=== PATIENT | female | born 1990 ===

== ENCOUNTER 2017-02-07 00:10 | Inpatient (IN) | payer MEDICAID, OTHER ==
--- NOTE | 2017-02-07 00:32 | C.PDOC ---
History Of Present Illness Patient presents to the ER for a complaint of a possible seizure that occurred [employer]. Patient states she was talking to her mother when her eyes rolled into her head, she passed out, and hit her head on the table. After a few seconds patient regain consciousness, heard her mother ask her how she was, and syncopized again with no recollection of the incident. Patient reports she began her menstruation cycle today. Patient does not appear post ictal at this time; denies nausea or vomiting. Time Seen by Provider: 02/07/17 00:31 Chief Complaint (Nursing): Seizure History Per: Patient, Family History/Exam Limitations: no limitations Recent Seizure Activity Began: Just Before Arrival Number Of Seizures: Multiple Length Of Seizures (Duration): Seconds Precipitating Factor(s): None Post-ictal Period: No Severity: None Recent travel outside of the [place]: No Additional History Per: Family Past Medical History Reviewed: Historical Data, Nursing Documentation, Vital Signs Vital Signs: Last Vital Signs Temp 97.8 F 02/07/17 00:12 Pulse 72 02/07/17 01:48 Resp 15 02/07/17 01:48 BP 120/77 02/07/17 01:48 Pulse Ox 98 02/07/17 01:48 - Medical History PMH: No Chronic Diseases Surgical History: No Surg Hx Family History: States: Unknown Family Hx - Social History Hx Alcohol Use: No Hx Substance Use: No - Immunization History Hx Tetanus Toxoid Vaccination: No Hx Influenza Vaccination: No Hx Pneumococcal Vaccination: No Review Of Systems Constitutional: Negative for: Fever, Chills Cardiovascular: Negative for: Chest Pain Respiratory: Negative for: Shortness of Breath Gastrointestinal: Negative for: Nausea, Vomiting Genitourinary: Negative for: Dysuria Musculoskeletal: Negative for: Back Pain Skin: Negative for: Rash, Lesions, Jaundice, Bruising Neurological: Positive for: Other (Syncopal episode). Negative for: Weakness, Seizures Psych: Negative for: Anxiety Physical Exam - Physical Exam Appears: Non-toxic Skin: Warm, Dry Head: Normacephalic Eye(s): bilateral: Normal Inspection (No nystagmus), PERRL, EOMI Oral Mucosa: Moist Neck: Trachea Midline, No Midline Cervical Tenderness, No Paracervical Tenderness, Supple Chest: Symmetrical Cardiovascular: Rhythm Regular Respiratory: No Rales, No Rhonchi, No Wheezing Gastrointestinal/Abdominal: Soft, No Tenderness Extremity: Normal ROM, No Tenderness Extremity: Bilateral: Atraumatic, Normal Color And Temperature, Normal ROM Pulses: Left Dorsalis Pedis: Normal, Right Dorsalis Pedis: Normal Neurological/Psych: Oriented x3, Normal Speech, Normal Cognition, Normal Cranial Nerves, Normal Motor, Normal Sensation Gait: Steady ED Course And Treatment - Laboratory Results Result Diagrams: 02/07/17 00:50 02/07/17 00:50 ECG: Interpreted By Me, Viewed By Me ECG Rhythm: Sinus Rhythm (59), R BBB, Nonspecific Changes O2 Sat by Pulse Oximetry: 100 Pulse Ox Interpretation: Normal Progress Note: EKG, blood work, and urinalysis ordered. IV fluids administered. Disposition Discussed With Dr.: Desiree Meredith Comment: accepted the pt on his service and took over the care at 4:28 AM Doctor Will See Patient In The: Hospital Counseled Patient/Family Regarding: Studies Performed, Diagnosis - Disposition Disposition: HOSPITALIZED Disposition Time: 00:31 Condition: FAIR Forms: [facility] (Amharic) - POA Present On Arrival: None - Clinical Impression Clinical Impression: Syncope - Scribe Statement The provider has reviewed the documentation as recorded by the Scribe David Sharma All medical record entries made by the Scribe were at my direction and personally dictated by me. I have reviewed the chart and agree that the record accurately reflects my personal performance of the history, physical exam, medical decision making, and the department course for this patient. I have also personally directed, reviewed, and agree with the discharge instructions and disposition. Decision To Admit - Pt Status Changed To: Hospital Disposition Of: Inpatient - Admit Certification Admit to Inpatient:: After my assessment, the patient will require hospitalization for at least two midnights. This is because of the severity of symptoms shown, intensity of services needed, and/or the medical risk in this patient being treated as an outpatient. - InPatient: Physician Admission Certification: I certify that this patient requires 2 or more midnights of care for the following reason:: After my assessment, the patient will require hospitalization for at least two midnights. This is because of the severity of symptoms shown, intensity of services needed, and/or the medical risk in this patient being treated as an outpatient. - . Bed Request Type: Telemetry Admitting Physician: Desiree Meredith Patient Diagnosis: Syncope
[2017-02-07] MEDS ORDERED: Sodium Chloride 0.9% 1,000 ML IV ONE ×2 (00:38→01:43)
[2017-02-07 00:53] LABS: BASO # 0.1 K/uL (0.0-0.2); BASO % 0.7 % (0.0-2.0); EOS # 0.1 K/uL (0.0-0.7); EOS % 0.7 % (0.0-4.0); HEMATOCRIT 37.9 % (34.0-47.0); LYMPH # 3.5 K/uL (1.0-4.3); LYMPH % 43.3 % (20.0-40.0); MEAN CORPUSCULAR HEMOGLOBIN 28.8 pg (27.0-31.0); MEAN CORPUSCULAR HGB CONC 33.5 g/dL (33.0-37.0); MEAN PLATELET VOLUME 10.6 fL (7.2-11.7); MONO # 0.5 K/uL (0.0-0.8); MONO % 6.5 % (0.0-10.0); NRBC % 0.1 % (0.0-2.0); WHITE BLOOD COUNT 8.1 K/uL (4.8-10.8)
[2017-02-07 01:00] LABS: CHLORIDE 100 mmol/L (98-107)
[2017-02-07 01:01] LABS: POTASSIUM 3.6 mmol/L (3.6-5.2); SODIUM 136 mmol/L (132-148)
[2017-02-07 01:05] LABS: ALB/GLOB RATIO 1.7 (1.0-2.1); ALKALINE PHOSPHATASE 37 U/L (38-126); ALT/SGPT 38 U/L (9-52); AST/SGOT 17 U/L (14-36); BILIRUBIN,TOTAL 0.3 mg/dL (0.2-1.3); BLOOD UREA NITROGEN 24 mg/dL (7-17); CALCIUM 8.2 mg/dl (8.6-10.4); CARBON DIOXIDE 22 mmol/L (22-30); GFR AFRICAN-AMERICAN > 60; GLUCOSE,RANDOM 140 mg/dL (65-105); TOTAL PROTEIN 6.6 g/dL (6.3-8.3)
[2017-02-07 02:29] LABS: URINE BILIRUBIN NEGATIVE (NEGATIVE); URINE COLOR Straw (YELLOW); URINE GLUCOSE (UA) NORMAL (Normal); URINE KETONE NEGATIVE (NEGATIVE); URINE LEUKOCYTE ESTERASE NEG Leu/uL (Negative); URINE PROTEIN NEGATIVE (NEGATIVE); URINE UROBILINOGEN NORMAL mg/dL (0.2-1.0); WBC URINE 2 /hpf (0-5)
[2017-02-07 02:39] LABS: URINE BLOOD NEGATIVE (NEGATIVE)
--- NOTE | 2017-02-07 04:03 | CT ---
EXAM: CT Head Without Intravenous Contrast CLINICAL HISTORY: 26 years old, female; Signs and symptoms; Syncope and collapse TECHNIQUE: Axial computed tomography images of the head/brain without intravenous contrast. All CT scans at this facility use one or more dose reduction techniques, viz.: automated exposure control; ma/kV adjustment per patient size (including targeted exams where dose is matched to indication; i.e. head); or iterative reconstruction technique. Coronal and sagittal reformatted images were created and reviewed. COMPARISON: No relevant prior studies available. FINDINGS: Brain: No intracranial hemorrhage. No mass. No definite edema. Ventricles: No hydrocephalus. Bones/joints: No acute fracture. Soft tissues: Unremarkable. Sinuses: No acute sinusitis. Mastoid air cells: No mastoid effusion. Orbits: Unremarkable as visualized. IMPRESSION: 1. No acute intracranial abnormality.
[2017-02-07] MEDS ORDERED: levETIRAcetam 1,000 MG in Sodium Chloride 0.9% 100 ML IVPB SCH (07:30)
[2017-02-07] MEDS ORDERED: levETIRAcetam 1,000 MG in Sodium Chloride 0.9% 100 ML IVPB STA (07:32)
[2017-02-07 08:50] LABS: MAGNESIUM 1.8 mg/dL (1.6-2.3); PHOSPHOROUS 3.3 mg/dL (2.5-4.5)
[2017-02-07 09:17] LABS: FREE T4 0.87 ng/dL (0.78-2.19)
[2017-02-07 09:31] LABS: THYROID STIMULATING HORMONE 1.91 mIU/L (0.46-4.68)
[2017-02-07] MEDS ORDERED: Gadodiamide 287 MG/ML VIAL (15ML) IV ONE (10:32)
--- NOTE | 2017-02-07 11:35 | MRI ---
PROCEDURE: MRI BRAIN WITH AND WITHOUT CONTRAST HISTORY: seizures r/o mass COMPARISON: Noncontrast head CT from 02/07/2017. TECHNIQUE: Multiplanar, multisequence MR images of the brain were obtained with and without intravenous contrast enhancement. 10 mL Omniscan was injected intravenously. FINDINGS: HEMORRHAGE: None DWI: No evidence of an acute or early subacute infarction. BRAIN PARENCHYMA: There is a linear T1 hypointense and T2/FLAIR hyperintense area in the right periatrial white matter extending to the cortex with corresponding enhancement. Razo-white matter differentiation is preserved. There is no mass, mass effect or abnormal extra-axial fluid collection. There is no territorial infarction. ENHANCEMENT: No abnormal leptomeningeal enhancement. VENTRICLES: The ventricles are normal in size, shape and configuration. CRANIUM: There is normal bone marrow signal pattern. ORBITS: Grossly unremarkable. PARANASAL SINUSES/MASTOIDS: Predominantly clear. VASCULAR SYSTEM: There are normal signal voids in the larger intracranial arteries. OTHER FINDINGS: None . IMPRESSION: No acute intracranial abnormality. 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 No evidence of intracranial mass, hydrocephalus or acute infarction.
--- NOTE | 2017-02-07 14:57 | CP.PCM.CON ---
<Ravinder Mccracken - Last Filed: 02/07/17 17:40> History of Present Illness - History of Present Illness History of Present Illness: Cardiology Consult Note- Dr. Rodriguez's service Patient seen and examined at approx 15:15PM in ED bed 9. Mother was accompanied bedside. CC: seizure-type event HPI: 26 year old female with no past medical history presents with complaints of syncopal event. She had two witnessed events which have never occurred before. She states that she was having a discussion with mother and friend when she suddenly dropped her head unto the table and shook. Patient states that she became alert and continued the conversation when she then fell to the table again, but this time, also fell on to the ground shaking for 20-30 seconds. She states that she remembers the conversation she was having with her mother just prior to the seizure. She states that when she woke up, she found herself in the living room with paramedics all around. She could not remember how she got to the living room. She states that her mother took her blood pressure with a home cuff and her BP was found to be a low systolic pressure in the 70s. She states that the paramedics commented on how pale she appeared as well. Of note, patient reports starting her menstrual period yesterday. She admits to feeling lightheaded just before her periods started. She also reports beginning a new gym regiment two week sprior for which she started taking a new supplement garcinia cambogia a week prior. She denies subjective fevers or chills, headaches, chest pain, palpitations, dyspnea, nausea, vomiting, diarrhea , dysuria at this time. FDLMP: February 06, 2017, Regular, lasting 4 day duration; admits to using 6 pads per day PMHX: No known history PSHx: Breast implants 3 years ago ( no known complications ) Fam Hx: Mom- HTN; Paternal grandmother has colon cancer which was diagnosed at approx 66 years of age Meds: newly started taking garcinia cambogia a week prior; apple cider vinegar tablets, green tea extract tablets Social: She denies smoking, She admits to social alcohol use on social occasions ; she denies illicit drug use; She denies caffeine or coffee; She lives with brother Allergies: NKDA Review of Systems - Review of Systems Systems not reviewed;Unavailable: Altered Mental Status, Language Barrier - Constitutional Constitutional: absent: Headache - EENT Eyes: absent: Blurred Vision, Change in Vision - Cardiovascular Cardiovascular: absent: Chest Pain - Respiratory Respiratory: absent: Dyspnea - Gastrointestinal Gastrointestinal: absent: Nausea, Vomiting - Reproductive: Female Reproductive:Female: Currently Menstual, Normal Menses - Menstruation Menstruation: Currently Menstual, Normal Menses - Musculoskeletal Musculoskeletal: absent: Back Pain - Integumentary Integumentary: absent: Dry Skin - Neurological Neurological: Confusion. absent: Abnormal Hearing, Abnormal Movements, Numbness , Focal Weakness - Psychiatric Psychiatric: Confusion - Hematologic/Lymphatic Hematologic: absent: Easy Bleeding, Easy Bruising Past Patient History - Infectious Disease Hx of Infectious Diseases: None - Past Social History Smoking Status: Never Smoked - PSYCHIATRIC Hx Substance Use: No - SURGICAL HISTORY Hx Surgeries: Yes Other/Comment: Breast implant - ANESTHESIA Hx Anesthesia: Yes Hx Anesthesia Reactions: No Meds Allergies/Adverse Reactions: Allergies Allergy/AdvReac Type Severity Reaction Status Date / Time No Known Allergies Allergy Verified 02/07/17 00:19 - Medications Medications: Current Medications Levetiracetam (Keppra) 500 mg PO BID DEREJE Physical Exam - Constitutional Appears: Non-toxic, No Acute Distress - Head Exam Head Exam: ATRAUMATIC, NORMAL INSPECTION, NORMOCEPHALIC - Eye Exam Eye Exam: EOMI, Normal appearance, PERRL Pupil Exam: NORMAL ACCOMODATION, PERRL - ENT Exam ENT Exam: Mucous Membranes Moist - Neck Exam Neck exam: Positive for: Full Rom - Respiratory Exam Respiratory Exam: NORMAL BREATHING PATTERN. absent: Wheezes - Cardiovascular Exam Cardiovascular Exam: +S1, +S2. absent: Systolic Murmur - GI/Abdominal Exam GI & Abdominal Exam: Normal Bowel Sounds, Soft - Extremities Exam Extremities exam: Positive for: full ROM - Back Exam Back exam: FULL ROM, NORMAL INSPECTION - Neurological Exam Neurological exam: Alert, Oriented x3 - Psychiatric Exam Psychiatric exam: Normal Affect, Normal Mood - Skin Skin Exam: Dry, Normal Color, Warm Results - Vital Signs Recent Vital Signs: Last Vital Signs Temp 98.4 F 02/07/17 12:30 Pulse 88 02/07/17 12:30 Resp 18 02/07/17 12:30 BP 114/82 02/07/17 12:30 Pulse Ox 98 02/07/17 12:30 - Labs Result Diagrams: 02/07/17 00:50 02/07/17 00:50 Labs: Laboratory Results - last 24 hr 02/07/17 02/07/17 02/07/17 00:50 00:50 00:50 WBC 8.1 RBC 4.41 Hgb 12.7 Hct 37.9 MCV 86.0 MCH 28.8 MCHC 33.5 RDW 13.0 Plt Count 208 MPV 10.6 Neut % (Auto) 48.8 L Lymph % (Auto) 43.3 H Barber % (Auto) 6.5 Eos % (Auto) 0.7 Baso % (Auto) 0.7 Neut # 4.0 Lymph # 3.5 Barber # 0.5 Eos # 0.1 Baso # 0.1 ESR PT 11.7 INR 1.0 APTT 29 Sodium 136 Potassium 3.6 Chloride 100 Carbon Dioxide 22 Anion Gap 18 BUN 24 H Creatinine 0.8 Est GFR ( Amer) > 60 Est GFR (Non-Af Amer) > 60 Random Glucose 140 H Calcium 8.2 L Phosphorus Magnesium Total Bilirubin 0.3 AST 17 ALT 38 Alkaline Phosphatase 37 L Total Creatine Kinase 158 H C-React Prot High Sens Total Protein 6.6 Albumin 4.2 Globulin 2.5 Albumin/Globulin Ratio 1.7 Lipase 135 Free T4 TSH 3rd Generation Prolactin Urine Color Urine Clarity Urine pH Ur Specific Nathalie Urine Protein Urine Glucose (UA) Urine Ketones Urine Blood Urine Nitrate Urine Bilirubin Urine Urobilinogen Ur Leukocyte Esterase Urine WBC (Auto) Ur Squamous Epith Cells Urine HCG, Qual Urine Opiates Screen Urine Methadone Screen Ur Barbiturates Screen Ur Phencyclidine Scrn Ur Amphetamines Screen U Benzodiazepines Scrn U Oth Cocaine Metabols U Cannabinoids Screen Blood Type Antibody Screen 02/07/17 02/07/17 02/07/17 00:50 02:26 04:28 WBC RBC Hgb Hct MCV MCH MCHC RDW Plt Count MPV Neut % (Auto) Lymph % (Auto) Barber % (Auto) Eos % (Auto) Baso % (Auto) Neut # Lymph # Barber # Eos # Baso # ESR PT INR APTT Sodium Potassium Chloride Carbon Dioxide Anion Gap BUN Creatinine Est GFR ( Amer) Est GFR (Non-Af Amer) Random Glucose Calcium Phosphorus Magnesium Total Bilirubin AST ALT Alkaline Phosphatase Total Creatine Kinase C-React Prot High Sens Total Protein Albumin Globulin Albumin/Globulin Ratio Lipase Free T4 TSH 3rd Generation Prolactin Urine Color Straw Urine Clarity Clear Urine pH 6.0 Ur Specific Nathalie 1.006 Urine Protein Negative Urine Glucose (UA) Normal Urine Ketones Negative Urine Blood Negative Urine Nitrate Negative Urine Bilirubin Negative Urine Urobilinogen Normal Ur Leukocyte Esterase Neg Urine WBC (Auto) 2 Ur Squamous Epith Cells 1 Urine HCG, Qual Negative Urine Opiates Screen Negative Urine Methadone Screen Negative Ur Barbiturates Screen Negative Ur Phencyclidine Scrn Negative Ur Amphetamines Screen Negative U Benzodiazepines Scrn Negative U Oth Cocaine Metabols Negative U Cannabinoids Screen Negative Blood Type A POSITIVE Antibody Screen Negative 02/07/17 02/07/17 02/07/17 08:28 08:28 08:40 WBC RBC Hgb Hct MCV MCH MCHC RDW Plt Count MPV Neut % (Auto) Lymph % (Auto) Barber % (Auto) Eos % (Auto) Baso % (Auto) Neut # Lymph # Barber # Eos # Baso # ESR 2 PT INR APTT Sodium Potassium Chloride Carbon Dioxide Anion Gap BUN Creatinine Est GFR ( Amer) Est GFR (Non-Af Amer) Random Glucose Calcium Phosphorus 3.3 Magnesium 1.8 Total Bilirubin AST ALT Alkaline Phosphatase Total Creatine Kinase C-React Prot High Sens 0.14 L Total Protein Albumin Globulin Albumin/Globulin Ratio Lipase Free T4 0.87 TSH 3rd Generation 1.91 Prolactin 14.8 Urine Color Urine Clarity Urine pH Ur Specific Nathalie Urine Protein Urine Glucose (UA) Urine Ketones Urine Blood Urine Nitrate Urine Bilirubin Urine Urobilinogen Ur Leukocyte Esterase Urine WBC (Auto) Ur Squamous Epith Cells Urine HCG, Qual Urine Opiates Screen Urine Methadone Screen Ur Barbiturates Screen Ur Phencyclidine Scrn Ur Amphetamines Screen U Benzodiazepines Scrn U Oth Cocaine Metabols U Cannabinoids Screen Blood Type Antibody Screen Assessment & Plan (1) Syncope Assessment and Plan: Syncopal vs Seizure event Appears Neurologic in nature and less likely cardiogenic Patient advised to discontinue garcinia cambogia supplement at this time. 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 All orders and management per Dr. Rodriguez. <Wilber Rodriguez - Last Filed: 02/07/17 22:38> Meds - Medications Medications: Current Medications Levetiracetam (Keppra) 500 mg PO BID DEREJE Last Admin: 02/07/17 18:01 Dose: 500 mg Results - Vital Signs Recent Vital Signs: Last Vital Signs Temp 97.9 F 02/07/17 17:36 Pulse 68 02/07/17 18:00 Resp 20 02/07/17 17:36 BP 128/79 02/07/17 17:36 Pulse Ox 100 02/07/17 17:36 - Labs Result Diagrams: 02/07/17 00:50 02/07/17 00:50 Labs: Laboratory Results - last 24 hr 02/07/17 02/07/17 02/07/17 00:50 00:50 00:50 WBC 8.1 RBC 4.41 Hgb 12.7 Hct 37.9 MCV 86.0 MCH 28.8 MCHC 33.5 RDW 13.0 Plt Count 208 MPV 10.6 Neut % (Auto) 48.8 L Lymph % (Auto) 43.3 H Barber % (Auto) 6.5 Eos % (Auto) 0.7 Baso % (Auto) 0.7 Neut # 4.0 Lymph # 3.5 Barber # 0.5 Eos # 0.1 Baso # 0.1 ESR PT 11.7 INR 1.0 APTT 29 Sodium 136 Potassium 3.6 Chloride 100 Carbon Dioxide 22 Anion Gap 18 BUN 24 H Creatinine 0.8 Est GFR ( Amer) > 60 Est GFR (Non-Af Amer) > 60 Random Glucose 140 H Calcium 8.2 L Phosphorus Magnesium Total Bilirubin 0.3 AST 17 ALT 38 Alkaline Phosphatase 37 L Total Creatine Kinase 158 H C-React Prot High Sens Total Protein 6.6 Albumin 4.2 Globulin 2.5 Albumin/Globulin Ratio 1.7 Lipase 135 Free T4 TSH 3rd Generation Prolactin Urine Color Urine Clarity Urine pH Ur Specific Nathalie Urine Protein Urine Glucose (UA) Urine Ketones Urine Blood Urine Nitrate Urine Bilirubin Urine Urobilinogen Ur Leukocyte Esterase Urine WBC (Auto) Ur Squamous Epith Cells Urine HCG, Qual Urine Opiates Screen Urine Methadone Screen Ur Barbiturates Screen Ur Phencyclidine Scrn Ur Amphetamines Screen U Benzodiazepines Scrn U Oth Cocaine Metabols U Cannabinoids Screen Blood Type Antibody Screen 02/07/17 02/07/17 02/07/17 00:50 02:26 04:28 WBC RBC Hgb Hct MCV MCH MCHC RDW Plt Count MPV Neut % (Auto) Lymph % (Auto) Barber % (Auto) Eos % (Auto) Baso % (Auto) Neut # Lymph # Barber # Eos # Baso # ESR PT INR APTT Sodium Potassium Chloride Carbon Dioxide Anion Gap BUN Creatinine Est GFR ( Amer) Est GFR (Non-Af Amer) Random Glucose Calcium Phosphorus Magnesium Total Bilirubin AST ALT Alkaline Phosphatase Total Creatine Kinase C-React Prot High Sens Total Protein Albumin Globulin Albumin/Globulin Ratio Lipase Free T4 TSH 3rd Generation Prolactin Urine Color Straw Urine Clarity Clear Urine pH 6.0 Ur Specific Nathalie 1.006 Urine Protein Negative Urine Glucose (UA) Normal Urine Ketones Negative Urine Blood Negative Urine Nitrate Negative Urine Bilirubin Negative Urine Urobilinogen Normal Ur Leukocyte Esterase Neg Urine WBC (Auto) 2 Ur Squamous Epith Cells 1 Urine HCG, Qual Negative Urine Opiates Screen Negative Urine Methadone Screen Negative Ur Barbiturates Screen Negative Ur Phencyclidine Scrn Negative Ur Amphetamines Screen Negative U Benzodiazepines Scrn Negative U Oth Cocaine Metabols Negative U Cannabinoids Screen Negative Blood Type A POSITIVE Antibody Screen Negative 02/07/17 02/07/17 02/07/17 08:28 08:28 08:40 WBC RBC Hgb Hct MCV MCH MCHC RDW Plt Count MPV Neut % (Auto) Lymph % (Auto) Barber % (Auto) Eos % (Auto) Baso % (Auto) Neut # Lymph # Barber # Eos # Baso # ESR 2 PT INR APTT Sodium Potassium Chloride Carbon Dioxide Anion Gap BUN Creatinine Est GFR ( Amer) Est GFR (Non-Af Amer) Random Glucose Calcium Phosphorus 3.3 Magnesium 1.8 Total Bilirubin AST ALT Alkaline Phosphatase Total Creatine Kinase C-React Prot High Sens 0.14 L Total Protein Albumin Globulin Albumin/Globulin Ratio Lipase Free T4 0.87 TSH 3rd Generation 1.91 Prolactin 14.8 Urine Color Urine Clarity Urine pH Ur Specific Nathalie Urine Protein Urine Glucose (UA) Urine Ketones Urine Blood Urine Nitrate Urine Bilirubin Urine Urobilinogen Ur Leukocyte Esterase Urine WBC (Auto) Ur Squamous Epith Cells Urine HCG, Qual Urine Opiates Screen Urine Methadone Screen Ur Barbiturates Screen Ur Phencyclidine Scrn Ur Amphetamines Screen U Benzodiazepines Scrn U Oth Cocaine Metabols U Cannabinoids Screen Blood Type Antibody Screen Assessment & Plan - Assessment and Plan (Free Text) Assessment: Patient seen and evaluated with the medical sonographer Plan of care as documented
[2017-02-07 17:37] VITALS: RESP 20
--- NOTE | 2017-02-07 19:29 | CP.PCM.HP ---
History of Present Illness - History of Present Illness History of Present Illness: 26 y/o F with no P/M/H presents with C/O?syncopal/seizure. The patient describes 2 distinct events which never occurred before. She was in a discussion with her mother when she suddenly felt lightheaded, fell down & hit her head. She got up immediately and continued the conversation. After a while , she again fell on the ground hitting her head and this time was shaking her extremities which lasted for about 25-30 seconds. She lost consciousness after this episode. The next thing which she remembers was she was in her living room with her mother on her side, and EMS personal around her. Her mother reports her blood pressure to be 70 systolic during this time. Her mother and EMS also reported her to be pale when they saw her. Past Patient History - Infectious Disease Hx of Infectious Diseases: None - Past Medical History & Family History Past Medical History?: Yes - Past Social History Smoking Status: Never Smoked - MUSCULOSKELETAL/RHEUMATOLOGICAL Hx Falls: No - PSYCHIATRIC Hx Substance Use: No - SURGICAL HISTORY Hx Surgeries: Yes Other/Comment: Breast implant - ANESTHESIA Hx Anesthesia: Yes Hx Anesthesia Reactions: No Meds Home Medications: Home Medication List Medication Instructions Recorded Confirmed Type levETIRAcetam [Keppra] 500 mg PO BID #60 tab 02/10/17 Rx Allergies/Adverse Reactions: Allergies Allergy/AdvReac Type Severity Reaction Status Date / Time No Known Allergies Allergy Verified 02/07/17 00:19 Physical Exam - Constitutional Appears: Well - Head Exam Head Exam: ATRAUMATIC, NORMAL INSPECTION, NORMOCEPHALIC - Eye Exam Eye Exam: EOMI, Normal appearance, PERRL Pupil Exam: NORMAL ACCOMODATION, PERRL - ENT Exam ENT Exam: Mucous Membranes Moist, Normal Exam - Neck Exam Neck exam: Positive for: Normal Inspection - Respiratory Exam Respiratory Exam: Decreased Breath Sounds - Cardiovascular Exam Cardiovascular Exam: REGULAR RHYTHM, +S1, +S2 - GI/Abdominal Exam GI & Abdominal Exam: Diminished Bowel Sounds, Soft - Rectal Exam Rectal Exam: Deferred Results - Vital Signs Recent Vital Signs: Last Vital Signs Temp 97.9 F 02/07/17 17:36 Pulse 58 L 02/07/17 17:36 Resp 20 02/07/17 17:36 BP 128/79 02/07/17 17:36 Pulse Ox 100 02/07/17 17:36 - Labs Result Diagrams: 02/10/17 13:56 02/10/17 13:15 Labs: Laboratory Results - last 24 hr 02/07/17 02/07/17 02/07/17 00:50 00:50 00:50 WBC 8.1 RBC 4.41 Hgb 12.7 Hct 37.9 MCV 86.0 MCH 28.8 MCHC 33.5 RDW 13.0 Plt Count 208 MPV 10.6 Neut % (Auto) 48.8 L Lymph % (Auto) 43.3 H [place] % (Auto) 6.5 Eos % (Auto) 0.7 Baso % (Auto) 0.7 Neut # 4.0 Lymph # 3.5 [place] # 0.5 Eos # 0.1 Baso # 0.1 ESR PT 11.7 INR 1.0 APTT 29 Sodium 136 Potassium 3.6 Chloride 100 Carbon Dioxide 22 Anion Gap 18 BUN 24 H Creatinine 0.8 Est GFR ( Amer) > 60 Est GFR (Non-Af Amer) > 60 Random Glucose 140 H Calcium 8.2 L Phosphorus Magnesium Total Bilirubin 0.3 AST 17 ALT 38 Alkaline Phosphatase 37 L Total Creatine Kinase 158 H C-React Prot High Sens Total Protein 6.6 Albumin 4.2 Globulin 2.5 Albumin/Globulin Ratio 1.7 Lipase 135 Free T4 TSH 3rd Generation Prolactin Urine Color Urine Clarity Urine pH Ur Specific [place] Urine Protein Urine Glucose (UA) Urine Ketones Urine Blood Urine Nitrate Urine Bilirubin Urine Urobilinogen Ur Leukocyte Esterase Urine WBC (Auto) Ur Squamous Epith Cells Urine HCG, Qual Urine Opiates Screen Urine Methadone Screen Ur Barbiturates Screen Ur Phencyclidine Scrn Ur Amphetamines Screen U Benzodiazepines Scrn U Oth Cocaine Metabols U Cannabinoids Screen Blood Type Antibody Screen 02/07/17 02/07/17 02/07/17 00:50 02:26 04:28 WBC RBC Hgb Hct MCV MCH MCHC RDW Plt Count MPV Neut % (Auto) Lymph % (Auto) [place] % (Auto) Eos % (Auto) Baso % (Auto) Neut # Lymph # [place] # Eos # Baso # ESR PT INR APTT Sodium Potassium Chloride Carbon Dioxide Anion Gap BUN Creatinine Est GFR ( Amer) Est GFR (Non-Af Amer) Random Glucose Calcium Phosphorus Magnesium Total Bilirubin AST ALT Alkaline Phosphatase Total Creatine Kinase C-React Prot High Sens Total Protein Albumin Globulin Albumin/Globulin Ratio Lipase Free T4 TSH 3rd Generation Prolactin Urine Color Straw Urine Clarity Clear Urine pH 6.0 Ur Specific [place] 1.006 Urine Protein Negative Urine Glucose (UA) Normal Urine Ketones Negative Urine Blood Negative Urine Nitrate Negative Urine Bilirubin Negative Urine Urobilinogen Normal Ur Leukocyte Esterase Neg Urine WBC (Auto) 2 Ur Squamous Epith Cells 1 Urine HCG, Qual Negative Urine Opiates Screen Negative Urine Methadone Screen Negative Ur Barbiturates Screen Negative Ur Phencyclidine Scrn Negative Ur Amphetamines Screen Negative U Benzodiazepines Scrn Negative U Oth Cocaine Metabols Negative U Cannabinoids Screen Negative Blood Type A POSITIVE Antibody Screen Negative 02/07/17 02/07/17 02/07/17 08:28 08:28 08:40 WBC RBC Hgb Hct MCV MCH MCHC RDW Plt Count MPV Neut % (Auto) Lymph % (Auto) [place] % (Auto) Eos % (Auto) Baso % (Auto) Neut # Lymph # [place] # Eos # Baso # ESR 2 PT INR APTT Sodium Potassium Chloride Carbon Dioxide Anion Gap BUN Creatinine Est GFR ( Amer) Est GFR (Non-Af Amer) Random Glucose Calcium Phosphorus 3.3 Magnesium 1.8 Total Bilirubin AST ALT Alkaline Phosphatase Total Creatine Kinase C-React Prot High Sens 0.14 L Total Protein Albumin Globulin Albumin/Globulin Ratio Lipase Free T4 0.87 TSH 3rd Generation 1.91 Prolactin 14.8 Urine Color Urine Clarity Urine pH Ur Specific [place] Urine Protein Urine Glucose (UA) Urine Ketones Urine Blood Urine Nitrate Urine Bilirubin Urine Urobilinogen Ur Leukocyte Esterase Urine WBC (Auto) Ur Squamous Epith Cells Urine HCG, Qual Urine Opiates Screen Urine Methadone Screen Ur Barbiturates Screen Ur Phencyclidine Scrn Ur Amphetamines Screen U Benzodiazepines Scrn U Oth Cocaine Metabols U Cannabinoids Screen Blood Type Antibody Screen
--- NOTE | 2017-02-08 06:27 | CON ---
NEUROLOGY CONSULTATION DATE: ATTENDING PHYSICIAN: Jovana Meredith MD LOCATION: The patient is in emergency room, bed 9. REASON FOR CONSULTATION: New onset of seizure. CHIEF COMPLAINT: The patient was brought into [facility] by EMS with a history of witnessed seizure at home. From a neurological point, I was called in to evaluate her for further management. HISTORY OF PRESENT ILLNESS: Ms. Soila Aj is a 26-year-old right-handed Chilean speaking Ukrainian female, who is studying Chilean, brought into [facility] emergency room with a history of witnessed seizures. This was described by her mother with translation. After 7 o'clock at dinner, she was sitting at the table suddenly her head fell on the table and she had shaking episode. Mother immediately tried to grab her to ask her what is happening. She said "yes" some response from her, otherwise she is not following any commands. The whole episode lasted for about few seconds. She grabbed her and brought her on the couch. In the couch, she had a similar episode happened, which lasted for about few seconds. These all episodes are not associating with any foaming mouth, any bowel and bladder incontinence, no bitten tongue. Never had episode like this before. No history of sleep deprivation. No history of any use of illicit drugs. No history of headache. No history of visual or verbal dysfunction. No history of recent travel. No history of recent medication or vaccination. PAST MEDICAL HISTORY: Unremarkable. PERSONAL HISTORY: Denies smoking or alcohol use. No history of using illicit drugs. PAST SURGICAL HISTORY: Breast augmentation. REVIEW OF SYSTEMS: A 9-point system has been reviewed. From neuro, new onset of seizure. MEDICATIONS: None with the only IV fluids. PHYSICAL EXAMINATION: VITAL SIGNS: Blood pressure 115/79, mean arterial pressure of 91, respirations 16, and temperature afebrile. NECK: Supple. No carotid bruit. HEART: Sounds are regular. CHEST: Fair air entry. EXTREMITIES: No edema in the legs. NEUROLOGIC: Mental status examination: She is awake, alert, oriented to person, place, and time. Speech is clear. Naming, repetition, fluency, and comprehension all within normal. CRANIAL NERVE EXAMINATION: Visual field intact. Pupils are reactive to light. Extraocular movements normal. No nystagmus. No facial sensory deficits. There is a facial asymmetry noted. Mild flattening of the right nasolabial fold. Hearing is normal. Tongue is midline. Good gag. No bitten tongue MOTOR EXAMINATION: On outstretched hand with eyes closed, no drift noted. Power is symmetric on either side. DEEP TENDON REFLEXES: Biceps, brachialis, triceps are 2+ on either side. Both knees are 2+. Both ankles are 2+. Plantars are upgoing on her left side and right side was downgoing. SENSORY EXAMINATION: Grossly intact. COORDINATION: Sysbkm-iuso-syofws test is intact. GAIT: She was able to march in one place. Romberg sign negative. Tandem is good. CONCLUSION: Upon reviewing her history and neurological examination, Ms. Soila Aj has been presenting with almost two episodes of rhythmic involuntary movement with loss of consciousness. There is a possibility of a seizure episode provoking from right cerebral cortex manifesting with a mild left hemapheresis (upper motor neuron dysfunction), right nasolabial flattening and left Babinski sign. LABORATORY DATA: CT of the head reviewed by me, no acute pathology is noted. Blood workup: WBC 8.1, hemoglobin 12.7, hematocrit 37.9, and platelets 208. PT 11.7, INR 1.0, and PTT 29. Sodium 136, potassium 3.6, chloride 100, bicarbonate 22, BUN 24, GFR more than 60, glucose 140, and calcium 8.2. Urinalysis is normal. Drug screen is negative. RECOMMENDATIONS: 1. Considering her new onset of seizure with abnormal neurological exam, the patient should be on antiseizure medication until the workup is completed. 2. The patient should not be driving unless she is stabilized neurologically. The patient does not drive at present as per the history. 3. Sleep hygiene has been discussed with the patient. 4. The patient is recommended to have a MRI of the brain with and without gadolinium, echocardiogram, EEG, and carotid Doppler including blood workup is to check all electrolytes. 5. The patient should be kept for seizure precautions. If all workup is done and she is stable in next 24 hours period, she can be discharged and she should be followed up as an outpatient. Too Amanda MD [facility] # [id number] [facility]ITALChip
--- NOTE | 2017-02-08 10:11 | EEG ---
DATE: 02/07/2017 This is a 16-channel electroencephalogram of an awake and a drowsy adult. During the study, photic stimulation was performed, hyperventilation was not performed. The resting electroencephalogram consists of 9 to 11 Hz, 20 to 30 microvolt alpha activity seen on parietal and occipital leads. Anteriorly, fast activity superimposed with 2 to 3 Hz of delta activity seen at the frontal and central leads, which is followed with high-amplitude 2 to 3 Hz of delta activity seen, which is consistent with early drowsiness. The photic stimulation did not evoke driving response noted at 2 to 20 Hz. IMPRESSION: This is a normal electroencephalogram of an awake and a drowsy adult. If the suspicion is high, I strongly recommend her to have use a sleep-deprived electroencephalogram or extended ambulatory video electroencephalogram is recommended, which can be done as an outpatient. Too Amanda MD JUAN
--- NOTE | 2017-02-08 11:30 | MRI ---
PROCEDURE: Magnetic Resonance Angiography Brain HISTORY: please do with contrast and MR VENOGRAM COMPARISON: None available. TECHNIQUE: 3D time of flight MR angiography of the intracranial arteries was performed. Rotating maximum intensity projection images were generated. FINDINGS: INTERNAL CAROTID ARTERIES: Unremarkable. The skull base, petrous, cavernous and supraclinoid segments are bilaterally widely patient. ANTERIOR CEREBRAL ARTERIES: A origin left A1 anterior cerebral artery segment is identified which is nevertheless patent. The right A1 and bilateral A2 segments are widely patent. Smaller distal branches unremarkable, as visualized. MIDDLE CEREBRAL ARTERIES: Unremarkable. M1 and M2 segments are widely patent. Perisylvian branches grossly symmetric. POSTERIOR CIRCULATION: Basilar Artery: Unremarkable. Symmetric vertebrobasilar system. Distal Vertebral Arteries: Unremarkable. Posterior Cerebral Arteries: Unremarkable. Posterior Inferior Cerebellar Arteries: Right PICA unremarkable appearing left PICA not clearly identified, potentially congenitally absent. ANEURYSM/ VASCULAR MALFORMATIONS: None. OTHER FINDINGS: None. IMPRESSION: Unremarkable MR angiography of the brain.
--- NOTE | 2017-02-08 12:09 | MRI ---
PROCEDURE: MR venography HISTORY: please do with contrast and MR VENOGRAM COMPARISON: Head CT without contrast 02/07/2017 and brain MRI with and without contrast 02/07/2017 as well. TECHNIQUE: MR venography was performed using 3D [id number] technique reformatted using maximum intensity projection algorithm in multiple planes without intravenous gadolinium. FINDINGS: The major sinuses throughout the brain appear patent without evidence to suggest sinus thrombosis. The superior sagittal sinus is widely patent as well as the transverse and sigmoid sinuses and the visualized proximal internal jugular veins. The straight sinus widely patent as well as the vein of Jose. Symmetric internal cerebral veins are encountered. IMPRESSION: No MR venogram evidence to suggest definite venous sinus thrombosis.
--- NOTE | 2017-02-08 13:04 | PN ---
DATE: 02/08/2017 TIME OF EVALUATION: 7:05 a.m. NEUROLOGICAL PROBLEM: Recurrent seizures with abnormal MRI. PHYSICAL EXAMINATION: VITAL SIGNS: Blood pressure 108/57, mean arterial pressure of 75, respiratory rate 16, temperature afebrile. NECK: Supple. No carotid bruits. HEART: Sounds regular. NEUROLOGIC: The patient is awake, alert, oriented to person and place. No confusion. She has been tolerating well with the current medication Keppra twice a day orally. She slept good. No clinical seizures been observed or witnessed during the hospitalization. The workup MRI of the brain showed either gliosis versus abnormal enlarged vein seen over right parietal region, but this enhanced with the contrast. Electroencephalogram being reviewed by me does not show any paroxysmal activities or focal slowing noted. LABORATORY DATA: Her blood workup, sed rate is 2, magnesium is 1.8, calcium 8.2, phosphorous 3.3, CRP 0.14, prolactin level is 14.8, TSH is 1.91. RECOMMENDATION: 1. The patient should have MR angiogram including MR venogram to rule out any venous anomaly. 2. Continue Keppra 500 mg twice a day. If medically stable, the patient can be discharged and should have a followup visit with me as an outpatient. She may need extended ambulatory electroencephalogram to further analyzing her abnormal electrical activities during her awake as well as her sleep. The patient will be followed closely with you while she is in the hospital. As I said the patient can be discharged if medically stable following her workup (MR angiogram). Too Amanda MD
--- NOTE | 2017-02-08 14:11 | CARD ---
APPROVED REPORT EXAM: Two-dimensional and M-mode echocardiogram with Doppler and color Doppler. Other Information Quality : GoodRhythm : NSR INDICATION Syncope 2D DIMENSIONS IVSd0.6 (0.7-1.1cm)LVDd4.5 (3.9-5.9cm) PWd0.7 (0.7-1.1cm)LVDs3.2 (2.5-4.0cm) FS (%) 29.5 %LVEF (%)56.6 (>50%) M-Mode DIMENSIONS Left Atrium (MM)2.90 (2.5-4.0cm)Aortic Root2.28 (2.2-3.7cm) Aortic Cusp Exc.1.74 (1.5-2.0cm) Mitral Valve MV E Rvqwrmve169.8cm/sMV A Pendhvsv07.1cm/sE/A ratio1.8 TDI E/Lateral E'0.0E/Medial E'0.0 Tricuspid Valve TR Peak [id number]/sTR Peak Gr.[id number] LEFT VENTRICLE The left ventricle is normal size. There is normal left ventricular wall thickness. The left ventricular function is normal. The left ventricular ejection fraction is within the normal range. There is normal LV segmental wall motion. The left ventricular diastolic function is normal. No left ventricle thrombus noted on this study. There is no ventricular septal defect visualized. There is no left ventricular aneurysm. There is no mass noted in the left ventricle. RIGHT VENTRICLE The right ventricle is normal size. There is normal right ventricular wall thickness. The right ventricular systolic function is normal. ATRIA The left atrium size is normal. The right atrium size is normal. The interatrial septum is intact with no evidence for an atrial septal defect. AORTIC VALVE The aortic valve is normal in structure. No aortic regurgitation is present. There is no aortic valvular stenosis. There is no aortic valvular vegetation. MITRAL VALVE The mitral valve is normal in structure. There is no mitral valve stenosis. There is no mitral valve regurgitation noted. TRICUSPID VALVE The tricuspid valve is normal in structure. There is no tricuspid valve regurgitation noted. PULMONIC VALVE The pulmonary valve is normal in structure. There is no pulmonic valvular regurgitation. GREAT VESSELS The aortic root is normal in size. The ascending aorta is normal in size. The pulmonary artery is normal. The IVC is normal in size and collapses >50% with inspiration. PERICARDIAL EFFUSION There is no pericardial effusion. <Conclusion> NORMAL STUDY.
--- NOTE | 2017-02-08 15:39 | VASCLAB ---
PROCEDURE: HISTORY: Syncope COMPARISON: None available. TECHNIQUE: Grayscale and duplex Doppler evaluation of the cervical carotid and vertebral arteries were performed. The common carotid, carotid bifurcations and cervical Internal Carotid Artery (ICA) and proximal External Carotid Artery (ECA) were evaluated. The vertebral arteries were evaluated for gross patency and flow direction. Report prepared by GORDO Robertson FINDINGS: RIGHT CAROTID ARTERIES: 1. Common Carotid Artery: No significant focal plaque formation of the right common carotid artery. Maximum Peak Systolic velocity: 90 cm/sec: End-diastolic velocity 23 cm/sec. 2. Carotid Bifurcation: plaque formation. Maximum Peak Systolic velocity: 61 cm/sec: End-diastolic velocity 27 cm/sec. 3. Internal Carotid Artery: Plaque description: 3.1. Proximal Segment: Peak systolic velocity 78 cm/sec: End-diastolic velocity 31 cm/sec - % stenosis 0-15% 3.2. Middle Segment: Peak systolic velocity 77 cm/sec: End-diastolic velocity 32 cm/sec - % stenosis 0-15% 3.3. Distal Segment: Peak systolic velocity 78 cm/sec: End-diastolic velocity 37 cm/sec - % stenosis 0-15% 4. External Carotid Artery: No significant focal plaque formation. Peak systolic velocity 68 cm/sec 5. ICA/CCA Ratio: 1.0 LEFT CAROTID ARTERIES: 1. Common Carotid Artery: No significant focal plaque formation of the left common carotid artery. Maximum Peak Systolic velocity: 82 cm/sec: End-diastolic velocity 23 cm/sec. 2. Carotid Bifurcation: plaque formation. Maximum Peak Systolic velocity: 60 cm/sec: End-diastolic velocity 20 cm/sec. 3. Internal Carotid Artery: Plaque description: 3.1. Proximal Segment: Peak systolic velocity 58 cm/sec: End-diastolic velocity 30 cm/sec - % stenosis 0-15% 3.2. Middle Segment: Peak systolic velocity 62 cm/sec: End-diastolic velocity 30 cm/sec - % stenosis 0-15% 3.3. Distal Segment: Peak systolic velocity 52 cm/sec: End-diastolic velocity 24 cm/sec - % stenosis 0-15% 4. External Carotid Artery: No significant focal plaque formation. Peak systolic velocity 92 cm/sec 5. ICA/CCA Ratio: 0.8 VERTEBRAL ARTERIES: 1. Right Vertebral Artery: The right vertebral artery flow direction is antegrade. 2. Left Vertebral Artery: The left vertebral artery flow direction is antegrade. OTHER FINDINGS: 1. Right Brachial Blood pressure: 90 mmHg. 2. Left Brachial Blood pressure: 90 mmHg. IMPRESSION: RIGHT: Duplex scan does not suggest hemodynamically significant stenosis of the right extracranial carotid arteries. LEFT: Duplex scan does not suggest hemodynamically significant stenosis of the left extracranial carotid arteries.
--- NOTE | 2017-02-08 17:53 | CP.PCM.PN ---
Subjective - Date & Time of Evaluation Date of Evaluation: 02/08/17 Time of Evaluation: 11:20 - Subjective Subjective: clinically same Objective - Vital Signs/Intake and Output Vital Signs (last 24 hours): Temp Pulse Resp BP Pulse Ox 98.2 F 86 20 118/73 98 02/08/17 16:00 02/08/17 16:09 02/08/17 16:00 02/08/17 16:00 02/08/17 16:00 Intake and Output: 02/08/17 02/08/17 06:59 18:59 Intake Total 250 Balance 250 - Medications Medications: Current Medications Levetiracetam (Keppra) 500 mg PO BID DEREJE Last Admin: 02/08/17 10:04 Dose: 500 mg - Labs Labs: 02/07/17 00:50 02/07/17 00:50 PT 11.7 SECONDS (9.7-12.2) 02/07/17 00:50 INR 1.0 02/07/17 00:50 APTT 29 SECONDS (21-34) 02/07/17 00:50 - Constitutional Appears: Well - Head Exam Head Exam: ATRAUMATIC, NORMAL INSPECTION, NORMOCEPHALIC - Eye Exam Eye Exam: EOMI, Normal appearance, PERRL Pupil Exam: NORMAL ACCOMODATION, PERRL - ENT Exam ENT Exam: Mucous Membranes Moist, Normal Exam - Neck Exam Neck Exam: Full ROM, Normal Inspection. absent: Lymphadenopathy - Respiratory Exam Respiratory Exam: Decreased Breath Sounds - Cardiovascular Exam Cardiovascular Exam: REGULAR RHYTHM, +S1, +S2 - GI/Abdominal Exam GI & Abdominal Exam: Soft, Diminished Bowel Sounds - Rectal Exam Rectal Exam: Deferred - Back Exam Back Exam: NORMAL INSPECTION - Neurological Exam Neurological Exam: Alert, Awake, CN II-XII Intact, Normal Gait, Oriented x3 - Psychiatric Exam Psychiatric exam: Normal Affect, Normal Mood - Skin Skin Exam: Dry, Intact, Normal Color, Warm Assessment and Plan (1) Prophylactic measure Status: Acute (2) Syncope Status: Acute - Assessment and Plan (Free Text) Plan: Patient examined. EKG and echo normal. Tilt table test tomorrow. Continue levetiracetam.
--- NOTE | 2017-02-08 23:52 | CP.PCM.PN ---
Subjective - Date & Time of Evaluation Date of Evaluation: 02/08/17 Time of Evaluation: 17:20 - Subjective Subjective: Patient seen and evaluated For Tilta table test tomorrow EKG and ECHO unremarkable Review of Systems - Review of Systems Systems not reviewed;Unavailable: Altered Mental Status, Language Barrier - Constitutional Constitutional: absent: Headache - EENT Eyes: absent: Blurred Vision, Change in Vision - Cardiovascular Cardiovascular: absent: Chest Pain - Respiratory Respiratory: absent: Dyspnea - Gastrointestinal Gastrointestinal: absent: Nausea, Vomiting - Reproductive: Female Reproductive:Female: Currently Menstual, Normal Menses - Menstruation Menstruation: Currently Menstual, Normal Menses - Musculoskeletal Musculoskeletal: absent: Back Pain - Integumentary Integumentary: absent: Dry Skin - Neurological Neurological: Confusion. absent: Abnormal Hearing, Abnormal Movements, Numbness , Focal Weakness - Psychiatric Psychiatric: Confusion - Hematologic/Lymphatic Hematologic: absent: Easy Bleeding, Easy Bruising Physical Exam - Constitutional Appears: Non-toxic, No Acute Distress - Head Exam Head Exam: ATRAUMATIC, NORMAL INSPECTION, NORMOCEPHALIC - Eye Exam Eye Exam: EOMI, Normal appearance, PERRL Pupil Exam: NORMAL ACCOMODATION, PERRL - ENT Exam ENT Exam: Mucous Membranes Moist - Neck Exam Neck exam: Positive for: Full Rom - Respiratory Exam Respiratory Exam: NORMAL BREATHING PATTERN. absent: Wheezes - Cardiovascular Exam Cardiovascular Exam: +S1, +S2. absent: Systolic Murmur - GI/Abdominal Exam GI & Abdominal Exam: Normal Bowel Sounds, Soft - Extremities Exam Extremities exam: Positive for: full ROM - Back Exam Back exam: FULL ROM, NORMAL INSPECTION - Neurological Exam Neurological exam: Alert, Oriented x3 - Psychiatric Exam Psychiatric exam: Normal Affect, Normal Mood - Skin Skin Exam: Dry, Normal Color, Warm Objective - Vital Signs/Intake and Output Vital Signs (last 24 hours): Temp Pulse Resp BP Pulse Ox 98.2 F 86 20 118/73 98 02/08/17 16:00 02/08/17 16:09 02/08/17 16:00 02/08/17 16:00 02/08/17 16:00 - Medications Medications: Current Medications Levetiracetam (Keppra) 500 mg PO BID DEREJE Last Admin: 02/08/17 17:59 Dose: 500 mg - Labs Labs: 02/07/17 00:50 02/07/17 00:50 PT 11.7 SECONDS (9.7-12.2) 02/07/17 00:50 INR 1.0 02/07/17 00:50 APTT 29 SECONDS (21-34) 02/07/17 00:50 Assessment and Plan - Assessment and Plan (Free Text) Assessment: (1) Syncope Assessment and Plan: Unlikely cardiac For Tilt in am (2) Prophylactic measure Assessment and Plan: GI prophylaxis not indicated at this time
--- NOTE | 2017-02-09 11:15 | PROCN ---
DATE: 02/09/2017 CARDIAC CATHETERIZATION REPORT REFERRING PHYSICIAN: Jovana Meredith MD QUILLER HAND: Carlos Laboy MD, covering for Dr. Wilber Rodriguez. PROCEDURE: Tilt table test. INDICATIONS: Syncope. DESCRIPTION OF PROCEDURE: Tilt table test was done at 30 degrees and 60 degrees and the patient's heart rate and blood pressure were monitored for 20 minutes. The patient was asymptomatic throughout the test. IMPRESSION: Appropriate heart rate and blood pressure response to tilt table test. The patient is asymptomatic throughout the tilt table procedure. Carlos Laboy MD
--- NOTE | 2017-02-09 19:54 | CP.PCM.PN ---
Subjective - Date & Time of Evaluation Date of Evaluation: 02/09/17 Time of Evaluation: 10:00 - Subjective Subjective: clincially same Objective - Vital Signs/Intake and Output Vital Signs (last 24 hours): Temp Pulse Resp BP Pulse Ox 98.1 F 79 20 104/68 96 02/09/17 16:00 02/09/17 16:00 02/09/17 16:00 02/09/17 16:00 02/09/17 16:00 - Medications Medications: Current Medications Levetiracetam (Keppra) 500 mg PO BID DEREJE Last Admin: 02/09/17 18:08 Dose: 500 mg - Labs Labs: 02/07/17 00:50 02/07/17 00:50 PT 11.7 SECONDS (9.7-12.2) 02/07/17 00:50 INR 1.0 02/07/17 00:50 APTT 29 SECONDS (21-34) 02/07/17 00:50 - Constitutional Appears: Well - Head Exam Head Exam: ATRAUMATIC, NORMAL INSPECTION, NORMOCEPHALIC - Eye Exam Eye Exam: EOMI, Normal appearance, PERRL Pupil Exam: NORMAL ACCOMODATION, PERRL - ENT Exam ENT Exam: Mucous Membranes Moist, Normal Exam - Neck Exam Neck Exam: Full ROM, Normal Inspection. absent: Lymphadenopathy - Respiratory Exam Respiratory Exam: Decreased Breath Sounds - Cardiovascular Exam Cardiovascular Exam: REGULAR RHYTHM, +S1, +S2 - GI/Abdominal Exam GI & Abdominal Exam: Soft, Diminished Bowel Sounds - Rectal Exam Rectal Exam: Deferred - Back Exam Back Exam: NORMAL INSPECTION - Neurological Exam Neurological Exam: Alert, Awake, CN II-XII Intact, Normal Gait, Oriented x3 - Psychiatric Exam Psychiatric exam: Normal Affect, Normal Mood - Skin Skin Exam: Dry, Intact, Normal Color, Warm Assessment and Plan (1) Prophylactic measure Status: Acute (2) Syncope Status: Acute - Assessment and Plan (Free Text) Plan: Patient examined. Tilt table test normal. No chest pain. No further syncopal episodes.
--- NOTE | 2017-02-09 22:02 | CP.PCM.PN ---
Subjective - Date & Time of Evaluation Date of Evaluation: 02/09/17 Time of Evaluation: 10:30 - Subjective Subjective: Patient s/p Tilt table test (Normal test) No chest pain Review of Systems - Review of Systems Systems not reviewed;Unavailable: Altered Mental Status, Language Barrier - Constitutional Constitutional: absent: Headache - EENT Eyes: absent: Blurred Vision, Change in Vision - Cardiovascular Cardiovascular: absent: Chest Pain - Respiratory Respiratory: absent: Dyspnea - Gastrointestinal Gastrointestinal: absent: Nausea, Vomiting - Reproductive: Female Reproductive:Female: Currently Menstual, Normal Menses - Menstruation Menstruation: Currently Menstual, Normal Menses - Musculoskeletal Musculoskeletal: absent: Back Pain - Integumentary Integumentary: absent: Dry Skin - Neurological Neurological: Confusion. absent: Abnormal Hearing, Abnormal Movements, Numbness , Focal Weakness - Psychiatric Psychiatric: Confusion - Hematologic/Lymphatic Hematologic: absent: Easy Bleeding, Easy Bruising Physical Exam - Constitutional Appears: Non-toxic, No Acute Distress - Head Exam Head Exam: ATRAUMATIC, NORMAL INSPECTION, NORMOCEPHALIC - Eye Exam Eye Exam: EOMI, Normal appearance, PERRL Pupil Exam: NORMAL ACCOMODATION, PERRL - ENT Exam ENT Exam: Mucous Membranes Moist - Neck Exam Neck exam: Positive for: Full Rom - Respiratory Exam Respiratory Exam: NORMAL BREATHING PATTERN. absent: Wheezes - Cardiovascular Exam Cardiovascular Exam: +S1, +S2. absent: Systolic Murmur - GI/Abdominal Exam GI & Abdominal Exam: Normal Bowel Sounds, Soft - Extremities Exam Extremities exam: Positive for: full ROM - Back Exam Back exam: FULL ROM, NORMAL INSPECTION - Neurological Exam Neurological exam: Alert, Oriented x3 - Psychiatric Exam Psychiatric exam: Normal Affect, Normal Mood - Skin Skin Exam: Dry, Normal Color, Warm Objective - Vital Signs/Intake and Output Vital Signs (last 24 hours): Temp Pulse Resp BP Pulse Ox 98.1 F 79 20 104/68 96 02/09/17 16:00 02/09/17 16:00 02/09/17 16:00 02/09/17 16:00 02/09/17 16:00 - Medications Medications: Current Medications Levetiracetam (Keppra) 500 mg PO BID DEREJE Last Admin: 02/09/17 18:08 Dose: 500 mg - Labs Labs: 02/07/17 00:50 02/07/17 00:50 PT 11.7 SECONDS (9.7-12.2) 02/07/17 00:50 INR 1.0 02/07/17 00:50 APTT 29 SECONDS (21-34) 02/07/17 00:50 Assessment and Plan - Assessment and Plan (Free Text) Assessment: (1) Syncope Assessment and Plan: Non cardiac Normal Tilt (2) Prophylactic measure Assessment and Plan: GI prophylaxis not indicated at this time
--- NOTE | 2017-02-10 08:09 | PN ---
DATE: 02/10/2017 NEUROLOGIC PROBLEM: New onset of recurrent seizures. PHYSICAL EXAMINATION: VITAL SIGNS: Blood pressure 97/56, pulse rate 56 to 70, respiratory rate 18, temperature 97.8. The patient is asymptomatic at present. Examination is unchanged to compare with my previous examination. The patient tolerating Keppra better. No side effect noted from the Keppra. Neurologic workup has been completed. Cardiac workup, tilt-table test is also negative. From neurologic point of view, the patient can be discharged and should have followup visit as an outpatient. Too Amanda MD
--- NOTE | 2017-02-10 09:34 | CP.PCM.PN ---
Subjective - Date & Time of Evaluation Date of Evaluation: 02/10/17 Time of Evaluation: 10:00 - Subjective Subjective: clinically same Objective - Vital Signs/Intake and Output Vital Signs (last 24 hours): Temp Pulse Resp BP Pulse Ox 98.4 F 68 20 104/68 99 02/10/17 08:00 02/10/17 08:00 02/10/17 08:00 02/10/17 08:00 02/10/17 08:00 Intake and Output: 02/10/17 02/10/17 06:59 18:59 Intake Total 240 Balance 240 - Medications Medications: Current Medications Levetiracetam (Keppra) 500 mg PO BID DEREJE Last Admin: 02/10/17 09:17 Dose: 500 mg - Labs Labs: 02/07/17 00:50 02/07/17 00:50 PT 11.7 SECONDS (9.7-12.2) 02/07/17 00:50 INR 1.0 02/07/17 00:50 APTT 29 SECONDS (21-34) 02/07/17 00:50 - Constitutional Appears: Well - Head Exam Head Exam: ATRAUMATIC, NORMAL INSPECTION, NORMOCEPHALIC - Eye Exam Eye Exam: EOMI, Normal appearance, PERRL Pupil Exam: NORMAL ACCOMODATION, PERRL - ENT Exam ENT Exam: Mucous Membranes Moist, Normal Exam - Neck Exam Neck Exam: Full ROM, Normal Inspection. absent: Lymphadenopathy - Respiratory Exam Respiratory Exam: Decreased Breath Sounds - Cardiovascular Exam Cardiovascular Exam: REGULAR RHYTHM, +S1, +S2 - GI/Abdominal Exam GI & Abdominal Exam: Soft, Diminished Bowel Sounds - Rectal Exam Rectal Exam: Deferred - Back Exam Back Exam: NORMAL INSPECTION - Neurological Exam Neurological Exam: Alert, Awake, CN II-XII Intact, Normal Gait, Oriented x3 - Psychiatric Exam Psychiatric exam: Normal Affect, Normal Mood - Skin Skin Exam: Dry, Intact, Normal Color, Warm Assessment and Plan (1) Prophylactic measure Status: Acute (2) Syncope Status: Acute - Assessment and Plan (Free Text) Plan: Patient examined. Patient better. No fresh complaints. Plan to discharge.
--- NOTE | 2017-02-10 09:54 | PN ---
DATE: 02/09/2017 TIME OF EVALUATION: 7:05 a.m. NEUROLOGICAL PROBLEM: Recurrent seizures with abnormal MRI. PHYSICAL EXAMINATION: VITAL SIGNS: Blood pressure 111/78, mean arterial pressure of 89, respiratory rate 18, temperature 97.7, pulse rate 81. NEUROLOGIC: The patient is more awake, alert, oriented to person, place, and time. Mentation is normal. No confusion. The patient did not have any seizure activity since she has been admitted, this is the third day since admission. Tolerating well with the Keppra, current dose. Her workup MRI of the brain showed linear enhancement over right parietal area with the increased intensity in T1 FLAIR as well as the T2 images and MRA did not show any abnormal vascular pathology. MR venogram also does not show any vascular pathologies. EEG is normal and no paroxysmal activities noted. Echocardiogram is normal. The patient is schedule to have tilt-table test (electrophysiological studies) today to assess any cardiac status that could explain her problem. From neurological point of view, workup all completed. The patient is advised not to take any nutritional supplements such as chromium filled products. Good sleep hygiene being discussed. Let her continue Keppra for now as she has been getting 500 mg twice a day following discharge. The patient is advised to see me or any other Neurologist to further follow up on the MRI. If possible, she may need extended hour ambulatory video electroencephalogram to study her electrical activities while she is awake as well as sleep. The patient will be followed while she is in the hospital. However, the patient is in neurological care for discharge following EP studies. Too Amanda MD
[2017-02-10 14:11] LABS: CHLORIDE 101 mmol/L (98-107)
[2017-02-10 14:12] LABS: BASO % 0.3 % (0.0-2.0); EOS # 0.1 K/uL (0.0-0.7); EOS % 0.8 % (0.0-4.0); HEMATOCRIT 44.5 % (34.0-47.0); LYMPH # 2.2 K/uL (1.0-4.3); LYMPH % 35.8 % (20.0-40.0); MEAN CELL VOLUME 86.1 fL (81.0-99.0); MEAN CORPUSCULAR HEMOGLOBIN 28.5 pg (27.0-31.0); MEAN CORPUSCULAR HGB CONC 33.1 g/dL (33.0-37.0); MEAN PLATELET VOLUME 10.3 fL (7.2-11.7); MONO # 0.4 K/uL (0.0-0.8); MONO % 6.6 % (0.0-10.0); RED CELL DISTRIBUTION WIDTH 13.2 % (11.5-14.5); WHITE BLOOD COUNT 6.2 K/uL (4.8-10.8)
[2017-02-10 14:12] LABS: POTASSIUM 3.8 mmol/L (3.6-5.2); SODIUM 138 mmol/L (132-148)
[2017-02-10 14:14] LABS: ALB/GLOB RATIO 1.1 (1.0-2.1); ALKALINE PHOSPHATASE 45 U/L (38-126); ALT/SGPT 30 U/L (9-52); AST/SGOT 20 U/L (14-36); BILIRUBIN,TOTAL 0.4 mg/dL (0.2-1.3); BLOOD UREA NITROGEN 12 mg/dL (7-17); CARBON DIOXIDE 25 mmol/L (22-30); GFR AFRICAN-AMERICAN > 60; TOTAL PROTEIN 8.6 g/dL (6.3-8.3)
[2017-02-10 14:15] LABS: CALCIUM 9.4 mg/dl (8.6-10.4); GLUCOSE,RANDOM 59 mg/dL (65-105)
--- NOTE | 2017-02-10 16:00 | CP.PCM.PN ---
Subjective - Date & Time of Evaluation Date of Evaluation: 02/10/17 Time of Evaluation: 15:59 - Subjective Subjective: pt seen and examined today, denies any pain, remain seizure fee, respiration easy and unlabored. NAD Objective - Vital Signs/Intake and Output Vital Signs (last 24 hours): Temp Pulse Resp BP Pulse Ox 98.4 F 68 20 104/68 99 02/10/17 08:00 02/10/17 08:00 02/10/17 08:00 02/10/17 08:00 02/10/17 08:00 Intake and Output: 02/10/17 02/10/17 06:59 18:59 Intake Total 240 600 Balance 240 600 - Medications Medications: Current Medications Levetiracetam (Keppra) 500 mg PO BID DEREJE Last Admin: 02/10/17 09:17 Dose: 500 mg - Labs Labs: 02/10/17 13:56 02/10/17 13:15 PT 11.7 SECONDS (9.7-12.2) 02/07/17 00:50 INR 1.0 02/07/17 00:50 APTT 29 SECONDS (21-34) 02/07/17 00:50 Assessment and Plan - Assessment and Plan (Free Text) Plan: patient presents to the ER for a complaint of a possible seizure that occurred [employer]. Patient seen by Dr. Amanda and Dr. Rodriguez while in the hospital. CT head and MRA head- normal Carotid Doppler- normal Tilt Table Test- normal Patient remain seizure free while in the hospital Lab- no acute finding (02/10), Pt cleared for discharge as per Dr. Rodriguez and Dr. Amanda Keppra 500 mg PO BID as per Dr. Amanda Follow up with PMD and Neuro outpt retunr to ER if any worsening s/s agree, verbalize understanding
[2017-02-10 16:33] VITALS: BP 106/71; TEMP 98; O2SAT 97
[2017-02-10] MEDS ORDERED: Influenza Vaccine 60 mcg/0.5 mL SYR (4YR UP) IM ONE (16:55)
[2017-02-10] MEDS ORDERED: Pneumococcal 23-Valent Vaccine IM ONE (16:57)
[2017-02-10 19:56] VITALS: PULSE 85
--- NOTE | 2017-03-04 12:40 | CARD ---
APPROVED REPORT EKG Measurement Heart [id number] <Conclusion> Sinus bradycardia Incomplete right bundle branch block Septal infarct, age undetermined Abnormal ECG
== END 2017-02-10 18:37 | disposition home or self-care (01) | DRG 101 ==
LOC: C.ER 00:10 → C.9E 04:25 → C.5S 16:20
PROVIDERS: ADMIT Internal Medicine Nephrology; ATTEND Internal Medicine Nephrology
PROC: 4A03XB1 Measurement of Arterial Pressure, Peripheral, External Approach (ICD-10-PCS; 2017-02-09)
PROC: 4A02XFZ Measurement of Cardiac Rhythm, External Approach (ICD-10-PCS; principal; 2017-02-09 08:00)
DX: G40.909 Epilepsy, unspecified, not intractable, without status epilepticus (principal); Z80.0 Family history of malignant neoplasm of digestive organs; Z82.49 Family history of ischemic heart disease and other diseases of the circulatory system; Z98.82 Breast implant status